=== PATIENT | female | born 1960 | race Caucasian/White ===

== ENCOUNTER 2020-08-23 15:36 | Outpatient (CLI) | payer BC | END 2020-08-23 15:37 | disposition home or self-care (01) | LOC: CTENTCT 15:36 | PROVIDERS: ATTEND Specialist | DX: R51.9 Headache, unspecified (principal) | CPT/HCPCS: 70486 ==

== ENCOUNTER 2020-10-09 09:38 | Outpatient (CLI) | payer BC ==
[2020-10-09 12:28] LABS: Hemoglobin 12.6 g/dL (12.0-15.5)
[2020-10-09 12:29] LABS: Anion Gap 14 mmol/L (10-20); BUN (Urea Nitrogen) 13 mg/dL (9.8-20.1); Calc. Creatinine Clearance 0 mL/min (70-130); Calcium 9.3 mg/dL (7.8-10.44); Carbon Dioxide 24 mmol/L (23-31); Chloride 109 mmol/L (98-107); Glucose 99 mg/dL (80-115); Potassium 4.6 mmol/L (3.5-5.1); Sodium 142 mmol/L (136-145)
[2020-10-10 01:26] LABS: SARS-CoV-2 PCR by NAA Not Detected (NotDetected)
== END 2020-10-09 09:39 | disposition home or self-care (01) ==
LOC: LABBT 09:38
PROVIDERS: ATTEND Specialist
DX: Z01.818 Encounter for other preprocedural examination (principal); J32.0 Chronic maxillary sinusitis; J34.2 Deviated nasal septum; H69.80 Other specified disorders of Eustachian tube, unspecified ear; Z20.822 Contact with and (suspected) exposure to COVID-19
CPT/HCPCS: 80048; 85014; 85018; 87635; 93005; 93010; U0003; U0005

== ENCOUNTER 2020-10-12 07:56 | Day surgery (SDC) | payer BC ==
[2020-10-11 09:33] VITALS: BMI 21.6
[2020-10-12] MEDS ORDERED: AFRIN NASAL MIST 15 ML BOT ONE ×2 (08:47→09:04)
[2020-10-12] MEDS ORDERED: Bacitracin Zinc Ointment 30 gm TUBE ONE (09:04)
[2020-10-12] MEDS ORDERED: Lidocaine 1% w/Epinephrine 1:100K 20 ML VIAL ONE (09:04)
[2020-10-12] MEDS ORDERED: EPINEPHrine 1 MG/ML AMP ONE (09:04)
[2020-10-12] MEDS ORDERED: Fentanyl 100 MCG/2 ML VIAL ONE ×3 (09:13→11:10)
[2020-10-12] MEDS ORDERED: Midazolam HCl 2 mg/2 ml Vial ONE (09:13)
[2020-10-12] MEDS ORDERED: PROPOFOL 20 ML ONE (09:13)
[2020-10-12] MEDS ORDERED: Ondansetron PF 4 MG/2 ML Vial ONE ×2 (09:13→12:36)
[2020-10-12] MEDS ORDERED: Dexamethasone 20 MG/5 ML VIAL ONE (09:13)
[2020-10-12] MEDS ORDERED: Lidocaine 2% PF 5 ML VIAL ONE (09:16)
[2020-10-12] MEDS ORDERED: PROPOFOL 200 MG/20 ML VIAL ONE (09:39)
[2020-10-12] MEDS ORDERED: Rocuronium Bromide 10 MG/ML (10ML VIAL) ONE (09:39)
[2020-10-12] MEDS ORDERED: Lidocaine 1% PF 5 ML VIAL ONE (09:39)
[2020-10-12] MEDS ORDERED: Hydrocodone-Acetamin 15 ML UDCUP ONE (12:09)
== END 2020-10-12 13:00 | disposition home or self-care (01) ==
LOC: SDC 07:56
PROVIDERS: ATTEND Specialist
PROC: 09TV8ZZ Resection of Left Ethmoid Sinus, Via Natural or Artificial Opening Endoscopic (ICD-10-PCS; principal; 2020-10-12)
PROC: 09TU8ZZ Resection of Right Ethmoid Sinus, Via Natural or Artificial Opening Endoscopic (ICD-10-PCS; principal; 2020-10-12)
PROC: 099T8ZZ Drainage of Left Frontal Sinus, Via Natural or Artificial Opening Endoscopic (ICD-10-PCS; principal; 2020-10-12)
PROC: 099R8ZZ Drainage of Left Maxillary Sinus, Via Natural or Artificial Opening Endoscopic (ICD-10-PCS; principal; 2020-10-12)
PROC: 099Q8ZZ Drainage of Right Maxillary Sinus, Via Natural or Artificial Opening Endoscopic (ICD-10-PCS; principal; 2020-10-12)
PROC: 09TL8ZZ Resection of Nasal Turbinate, Via Natural or Artificial Opening Endoscopic (ICD-10-PCS; principal; 2020-10-12)
PROC: 09SM0ZZ Reposition Nasal Septum, Open Approach (ICD-10-PCS; principal; 2020-10-12)
PROC: 099S8ZZ Drainage of Right Frontal Sinus, Via Natural or Artificial Opening Endoscopic (ICD-10-PCS; principal; 2020-10-12)
DX: J32.9 Chronic sinusitis, unspecified (principal); J34.2 Deviated nasal septum; J34.3 Hypertrophy of nasal turbinates; G89.29 Other chronic pain; G50.1 Atypical facial pain; J33.9 Nasal polyp, unspecified; E03.9 Hypothyroidism, unspecified; M06.9 Rheumatoid arthritis, unspecified; E06.3 Autoimmune thyroiditis; J30.1 Allergic rhinitis due to pollen; J30.81 Allergic rhinitis due to animal (cat) (dog) hair and dander; J30.89 Other allergic rhinitis; Z79.899 Other long term (current) drug therapy
CPT/HCPCS: J0171; J1100; J2001; J2250; J2405; J2704; J3010

== ENCOUNTER 2022-05-24 13:30 | Inpatient (IN) | payer BC ==
[2022-05-27] MEDS ORDERED: Bupivacaine HCl 0.5%/Epinephrine 1:200,000/PF 30 ml Vial ONE (06:15)
[2022-05-27] MEDS ORDERED: Thrombin 5000 UNITS/5 ML VIAL ONE (06:15)
[2022-05-27] MEDS ORDERED: Neomycin-Polymyxin 1 ML AMP ONE ×2 (06:15→09:47)
[2022-05-27] MEDS ORDERED: Bacitracin Zinc Ointment 30 gm TUBE ONE (06:15)
[2022-05-27] MEDS ORDERED: fentaNYL PF 100 MCG/2 ML SYRINGE ONE ×2 (06:37→10:31)
[2022-05-27] MEDS ORDERED: Dexmedetomidine 200 MCG/2 ML VIAL ONE (06:37)
[2022-05-27] MEDS ORDERED: Midazolam HCl 2 mg/2 ml Vial ONE (06:45)
[2022-05-27] MEDS ORDERED: Sodium Chloride 0.9% 100 ML ONE (06:52)
[2022-05-27] MEDS ORDERED: CEFAZOLIN 2 GM VIAL ONE (06:52)
[2022-05-27] MEDS ORDERED: NEOSTIGMINE 3 MG/3 ML SYR 3 MG/3 ML SYRINGE ONE (07:07)
[2022-05-27] MEDS ORDERED: PHENYLEPHRINE-NS 100 MCG/ML 10 ML SYRINGE ONE (07:07)
[2022-05-27] MEDS ORDERED: Rocuronium Bromide 10 MG/ML (10ML VIAL) ONE (07:07)
[2022-05-27] MEDS ORDERED: Calcium Chloride 1 GM/10 ML Abboject SYRINGE ONE (07:07)
[2022-05-27] MEDS ORDERED: Dexamethasone 20 MG/5 ML VIAL ONE (07:07)
[2022-05-27] MEDS ORDERED: ePHEDrine 50 MG/ML VIAL ONE (07:07)
[2022-05-27] MEDS ORDERED: Ondansetron PF 4 MG/2 ML Vial ONE ×2 (07:07→12:29)
[2022-05-27] MEDS ORDERED: Glycopyrrolate 0.2 MG/ML 5 ML SYRINGE ONE (07:07)
[2022-05-27] MEDS ORDERED: PROPOFOL 200 MG/20 ML VIAL ONE (07:07)
[2022-05-27 07:47] LABS: SARS-CoV-2 NAA Rapid Test Not Detected (NotDetected)
[2022-05-27] MEDS ORDERED: FENTANYL 50 MCG/ML 1 ML VIAL ONE ×2 (11:07→11:35)
[2022-05-27] MEDS ORDERED: Acetaminophen 325 MG TAB PO PRN (11:11)
[2022-05-27] MEDS ORDERED: Docusate 100 MG CAP PO PRN (11:11)
[2022-05-27] MEDS ORDERED: Ondansetron PF 4 MG/2 ML Vial IVP PRN (11:11)
[2022-05-27] MEDS ORDERED: Mag-Al 1200 mg/1200 mg/30 ML UDCUP PO PRN (11:11)
[2022-05-27] MEDS ORDERED: Promethazine HCl 25 MG/ML VIAL IM PRN (11:11)
[2022-05-27] MEDS ORDERED: hydrALAZINE 20 MG/ML VIAL SLOW IVP PRN (11:11)
[2022-05-27] MEDS ORDERED: Labetalol HCl 100 MG/20 ML VIAL ONE (11:27)
[2022-05-27] MEDS: Morphine 4 MG/ML VIAL SLOW IVP PRN ×4 (12:57→23:25)
[2022-05-27] MEDS: Sodium Chloride 0.9% 1,000 ML IV SCH (13:02)
[2022-05-27] MEDS: HYDROcodone/Acetaminophen 7.5/325 mg Tablet PO PRN ×2 (13:18→20:51)
[2022-05-27 13:38] VITALS: BMI 22.4
[2022-05-27] MEDS ORDERED: FLU VACC QS2022-23(6MOS UP)/PF 60 MCG/0.5 ML SYRINGE IM ONE (14:00)
[2022-05-27] MEDS: CEFAZOLIN 2 GM in Sodium Chloride 0.9% 100 ML IVPB SCH (14:55)
[2022-05-27] MEDS: Labetalol HCl 100 MG/20 ML VIAL SLOW IVP PRN ×2 (15:51→16:56)
[2022-05-27] MEDS ORDERED: Morphine 4 MG/ML VIAL SLOW IVP SCH (17:30)
[2022-05-27] MEDS ORDERED: niCARdipine 25 MG in Sodium Chloride 0.9% 250 ML 250 ML IVPB PRN (17:31)
[2022-05-27] MEDS: Losartan 25 MG TAB PO SCH (20:51)
[2022-05-27] MEDS: Montelukast Sodium 10 mg Tablet PO SCH (20:51)
[2022-05-28] MEDS: Sodium Chloride 0.9% 1,000 ML IV SCH ×2 (01:10→15:29)
[2022-05-28] MEDS: CEFAZOLIN 2 GM in Sodium Chloride 0.9% 100 ML IVPB SCH (01:10)
[2022-05-28] MEDS: HYDROcodone/Acetaminophen 7.5/325 mg Tablet PO PRN ×4 (01:18→20:32)
[2022-05-28] MEDS: Morphine 4 MG/ML VIAL SLOW IVP PRN ×2 (01:19→11:13)
[2022-05-28] MEDS: Labetalol HCl 100 MG/20 ML VIAL SLOW IVP PRN (01:59)
[2022-05-28] MEDS: Thyroid 60 MG TAB PO SCH (06:40)
[2022-05-28] MEDS: Montelukast Sodium 10 mg Tablet PO SCH (20:32)
[2022-05-28] MEDS: Losartan 25 MG TAB PO SCH (20:32)
[2022-05-29] MEDS: Sodium Chloride 0.9% 1,000 ML IV SCH (05:16)
[2022-05-29] MEDS: Thyroid 60 MG TAB PO SCH (05:33)
[2022-05-29] MEDS: HYDROcodone/Acetaminophen 7.5/325 mg Tablet PO PRN (05:34)
[2022-05-29 07:58] VITALS: BP 129/68
[2022-05-29 08:02] VITALS: TEMP 98.5
== END 2022-05-29 09:00 | disposition home or self-care (01) | DRG 25 ==
LOC: SURG A 05-27 05:54 → CCU 05-27 12:37 → SURG B 05-28 18:25
PROVIDERS: ADMIT Neurological Surgery; ATTEND Neurological Surgery
PROC: 00B70ZZ Excision of Cerebral Hemisphere, Open Approach (ICD-10-PCS; principal; 2022-05-27)
DX: D32.0 Benign neoplasm of cerebral meninges (principal); G93.6 Cerebral edema; M06.9 Rheumatoid arthritis, unspecified; G89.18 Other acute postprocedural pain; Z98.890 Other specified postprocedural states; Z79.899 Other long term (current) drug therapy; Z79.890 Hormone replacement therapy; Z91.048 Other nonmedicinal substance allergy status; Z83.3 Family history of diabetes mellitus; Z80.9 Family history of malignant neoplasm, unspecified; Z20.822 Contact with and (suspected) exposure to COVID-19; E07.89 Other specified disorders of thyroid
CPT/HCPCS: 70250; 85027; 85610; 85730; 88307; 88331; 88341; 88342; 88360; C1713; J0360; J1100; J2250; J2270; J2405; J2704; J3010; J3490; J7050; U0002

== ENCOUNTER 2022-05-24 13:43 | Outpatient (CLI) | payer BC ==
[2022-05-24 15:38] LABS: PTT 26.5 sec (22.0-33.0); Prothrombin Time 10.6 sec (9.5-12.1)
[2022-05-24 15:47] LABS: Hemoglobin 13.4 g/dL (12.0-15.5); Mean Corpuscular HGB CONC 35.6 g/dL (32.0-36.0); Mean Corpuscular Hemoglobin 31.1 pg (27.0-33.0); Mean Corpuscular Volume 87.2 fl (81.6-98.3); Mean Platelet Volume 10.3 fl (7.4-10.4); Platelet Count 183 10x3/uL (150-450); RBC Distribution Width 12.3 % (11.5-14.5); Red Blood Cell (RBC) Count 4.31 10x6/uL (3.90-5.03); White Blood Cell (WBC) Count 5.6 10x3/uL (3.5-10.5)
== END 2022-05-24 13:44 | disposition home or self-care (01) ==
LOC: LABBT 13:43
PROVIDERS: ATTEND Neurological Surgery
DX: Z01.812 Encounter for preprocedural laboratory examination (principal); C71.1 Malignant neoplasm of frontal lobe; D33.2 Benign neoplasm of brain, unspecified
CPT/HCPCS: 85027; 85610; 85730

== ENCOUNTER 2022-08-20 13:33 | Outpatient (CLI) | payer BC ==
[~2022-08-20 13:33] MED LIST: Magnevist 469MG/ML 20 ML VIAL ONE
== END 2022-08-20 13:34 | disposition home or self-care (01) ==
LOC: TBSIIMAG 13:33
PROVIDERS: ATTEND Neurological Surgery
DX: D33.2 Benign neoplasm of brain, unspecified (principal); Z98.890 Other specified postprocedural states
CPT/HCPCS: 70553; 82565

== ENCOUNTER 2023-08-14 10:03 | Outpatient (CLI) | payer MEDICARE ==
[2023-08-14] MEDS ORDERED: Magnevist 469MG/ML 20 ML VIAL ONE (14:04)
== END 2023-08-14 10:04 | disposition home or self-care (01) ==
LOC: MRI 10:03
PROVIDERS: ATTEND Neurological Surgery
DX: D32.9 Benign neoplasm of meninges, unspecified (principal); Z98.890 Other specified postprocedural states
CPT/HCPCS: 70553; A9579

== ENCOUNTER 2024-08-27 10:58 | Outpatient (CLI) | payer MEDICARE ==
[2024-08-27] MEDS ORDERED: Magnevist 469MG/ML 20 ML VIAL ONE (13:06)
== END 2024-08-27 10:59 | disposition home or self-care (01) ==
LOC: MRI 10:58
PROVIDERS: ATTEND Neurological Surgery
DX: D32.9 Benign neoplasm of meninges, unspecified (principal); Z98.890 Other specified postprocedural states
CPT/HCPCS: 36415; 70553; 76376; 82565